=== PATIENT | female | born 1990 | race Caucasian/White ===

== ENCOUNTER 2017-02-16 09:29 | Emergency (ER) | payer MEDICAID ==
[~2017-02-16] VITALS: Ht 160 cm; Wt 79.9 kg
[2017-02-16 09:41] VITALS: BP 130/77
--- NOTE | 2017-02-16 09:45 | NUR ---
PT AA&OX4 WITH EVEN AND STEADY GAIT AT THIS TIME; RR EVEN/UNLABORED; PT TO LOBBY AWAITING OPEN BED.
--- NOTE | 2017-02-16 14:17 | NUR ---
PATIENT TO BED 11 AT THIS TIME.
--- NOTE | 2017-02-16 14:31 | NUR ---
PATIENT BIB FAMILY C/O FALL X LAST NIGHT. PT STATES " I THINK I LOST CONSCIOUSNESS"; PT STATES HIT POSTERIOR HEAD.PT STATES SHE FEELS DIZZY W/ SLIGHT BLURRY OF VISSION;HX OF ASTHMA;SKIN IS PINK/WARM/DRY; AAOX4 WITH EVEN AND STEADY GAIT; LUNGS CLEAR BL; HR EVEN AND REGULAR; PT DENIES ANY FEVER, CP, SOB, OR COUGH AT THIS TIME;PATIENT POSITIONED FOR COMFORT; HOB ELEVATED; BEDRAILS UP X2; BED DOWN. ER MD MADE AWARE OF PT STATUS.
[2017-02-16] MEDS ORDERED: KETOROLAC 60 MG/2 ML VIAL IM ONE (15:00)
[2017-02-16 16:07] VITALS: BP 130/77
== END 2017-02-16 16:09 | disposition home or self-care (01) ==
LOC: MED 09:29
DX: R51 Headache (principal); R11.2 Nausea with vomiting, unspecified; W22.8XXA Striking against or struck by other objects, initial encounter; Y93.89 Activity, other specified; Y92.89 Other specified places as the place of occurrence of the external cause; Y99.8 Other external cause status
CPT/HCPCS: 81002; 81025; 96372; 99283; J1885